=== PATIENT | male | born 1975 | race Caucasian/White ===

== ENCOUNTER → 2019-04-07 | Outpatient (CLI) | payer OTHER ==
--- NOTE | 2019-04-07 07:45 | MR ---
EXAMINATION TYPE: MR knee LT wo con DATE OF EXAM: 04/07/2019 COMPARISON: NONE HISTORY: L knee pain per order. Outer knee pain and locking on and off for 1 year per patient. TECHNIQUE: Multiplanar, multisequence images of the knee is performed without IV contrast. FINDINGS: MEDIAL MENISCUS: Anterior and posterior horns are intact without tear. LATERAL MENISCUS: Anterior and posterior horns are intact without tear. CRUCIATE LIGAMENTS: The anterior and posterior cruciate ligaments are intact and unremarkable. COLLATERAL LIGAMENTS: The medial collateral ligament and lateral collateral ligament complex are inta ct and unremarkable. EXTENSOR MECHANISM: Visualized quadriceps and patellar tendons are intact. EFFUSION: No significant suprapatellar joint effusion. POPLITEAL CYST: There is small popliteal/viera cyst seen best on axial image 12. TRICOMPARTMENT SPACES: There is mild to moderate tricompartment joint space loss and spurring. CARTILAGE: Fissuring of articular cartilage medial tibiofemoral compartment. Some chondromalacia mccauley lla inferiorly. No full-thickness cartilaginous loss. BONE MARROW SIGNAL: No focal abnormal marrow signal is appreciated. OTHER: Some cystic change posterior aspect proximal tibiofibular level could reflect additional synov ial cysts. IMPRESSION: No meniscal or ligamentous tear is seen. [id number] tricompartment degenerative noelle nges somewhat pronounced for patient's age.
== END | disposition home or self-care (01) ==
LOC: RADMRIMAIN 07:04
PROVIDERS: ATTEND Orthopaedic Surgery
DX: M17.12 Unilateral primary osteoarthritis, left knee (principal)

== ENCOUNTER → 2019-08-26 | Outpatient (CLI) | payer OTHER ==
[2019-08-26 09:55] LABS: Basophils % (A) 0 %; Eosinophils # (A) 0.1 k/uL (0-0.7); Eosinophils % (A) 1 %; HCT 44.4 % (39.0-53.0); HGB 15.2 gm/dL (13.0-17.5); Lymphocytes # (A) 1.9 k/uL (1.0-4.8); Lymphocytes % (A) 30 %; MCH 30.5 pg (25.0-35.0); MCHC 34.2 g/dL (31.0-37.0); Mean Platelet Volume 8.3; Monocytes # (A) 0.4 k/uL (0-1.0); Monocytes % (A) 6 %; Neutrophils # (A) 3.9 k/uL (1.3-7.7); Neutrophils % (A) 61 %; Platelet Count 204 k/uL (150-450); RBC 4.99 m/uL (4.30-5.90); WBC 6.4 k/uL (3.8-10.6)
[2019-08-26 10:23] LABS: Potassium 4.4 mmol/L (3.5-5.1)
== END | disposition home or self-care (01) ==
LOC: LABPAT 09:03
PROVIDERS: ATTEND Orthopaedic Surgery
DX: Z01.818 Encounter for other preprocedural examination (principal); M23.92 Unspecified internal derangement of left knee
CPT/HCPCS: 80051; 85025; 36415; U0003

== ENCOUNTER 2019-08-30 10:31 | Day surgery (SDC) | payer OTHER ==
[2019-08-26 10:47] VITALS: BMI 29.5
--- NOTE | 2019-08-29 11:19 | HP ---
HISTORY AND PHYSICAL CHIEF COMPLAINT: Left knee pain. 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 He has had multiple previous injuries. He notes intermittent catching along with swelling and giving way. Recently, he has resorted to using crutches. He has tried previous medications along with injections with only partial temporary relief. PAST MEDICAL HISTORY: Negative. PAST SURGICAL HISTORY: Significant for hernia repair. CURRENT MEDICATIONS: None. He denies drug allergies. FAMILY HISTORY: Significant for cancer. SOCIAL HISTORY: Significant for social alcohol use. 16 POINT REVIEW OF SYSTEMS: Otherwise reviewed and is noncontributory. PHYSICAL EXAMINATION: On examination, the patient is approximately 5 foot 9, 200 pounds of mesomorphic habitus. HEENT': Exam is nonfocal. NECK: Supple. He has painless passive motion of his left hip. Straight leg raise is negative. Active motion left knee -12 to 70 degrees of flexion. He has a moderate effusion. He is tender about the medial joint line. Collaterals are stable, Rain is negative, Markos's is equivocal. His distal neurovascular exam appears intact in the left lower extremity. MRI report left knee showed evidence of medial compartment degenerative changes with possible chondral injury of the medial femoral condyle. IMPRESSION: Left knee internal derangement with possible medial femoral condyle chondral injury. RECOMMENDATIONS: I talked to the patient at length regarding his condition and treatment options. At this point, he remains quite symptomatic, having pain and mechanical symptoms despite conservative measures. After a thorough discussion, he opts to proceed with surgery. Will plan to proceed with arthroscopic evaluation with possible medial femoral chondrectomy and microfracture of the medial femoral condyle. Risks and benefits were discussed at length in layman's terms. We will likely perform it as an outpatient procedure. MMODL / IJN: [id number] /
[~2019-08-30 10:31] MED LIST: LACTATED RINGERS 1,000 ML IV SCH; LIDOCAINE 1% (10MG/ML) FOR IV START INTRADERMA PRN; ONDANSETRON 4 MG/2 ML VIAL IVP ONE
[2019-08-30 10:53] VITALS: TEMP 97.2
[2019-08-30] MEDS ORDERED: DEXAMETHASONE SOD PHOSPHATE 10 MG/ML 1 ML VIAL IV ONE (10:58)
[2019-08-30] MEDS ORDERED: LIDOCAINE 1% INJ 10MG/ML (20 ML MDV) ONE (11:59)
[2019-08-30] MEDS ORDERED: MIDAZOLAM 2 MG/2 ML VIAL ONE (11:59)
[2019-08-30] MEDS ORDERED: fentaNYL (PF) 50 MCG/ML 2 ML AMP ONE (11:59)
[2019-08-30] MEDS ORDERED: PROPOFOL 10 MG/ML 20 ML VIAL IV ONE (11:59)
[2019-08-30] MEDS ORDERED: LACTATED RINGERS 1,000 ML IV ONE (12:52)
--- NOTE | 2019-08-30 13:04 | P.OP ---
Date of Procedure: 08/30/19 Preoperative Diagnosis: Left knee internal derangement Postoperative Diagnosis: Grade 23 chondral injury medial femoral condyle and medial patella facet/grade 4 chondral defect femoral trochlea Procedure(s) Performed: Left knee arthroscopic medial femoral chondrectomy/patellar chondroplasty/microfracture femoral trochlea Anesthesia: ABDIRIZAK Surgeon: Diego Darby Estimated Blood Loss (ml): 10 Pathology: none sent Condition: stable Disposition: PACU Indications for Procedure: The patient's a 44-year-old male who presents with progressive left knee pain and mechanical symptoms after previous twisting injury. A discussion of the risks and benefits of operative intervention versus continued conservative measures was made with the patient. He opted to proceed with surgery. Operative risks to include infection, neurovascular injury, development of blood clots, possible incomplete resolution of symptoms, possible worsening symptoms and need for subsequent procedures was discussed. Informed consent was obtained. Operative Findings: As below Description of Procedure: The patient was brought to the operating room, and after induction of general anesthesia examined the left knee. Collaterals were stable, Rain was negative, and posterior drawer was negative. The left lower extremity was prepped and draped in a normal fashion. A superior lateral portal was made through a 3 mm skin incision superior and lateral to the patella. This was used for outflow. A lateral portal was made through a 5 mm vertical skin incision lateral to the patella tendon above the joint line. Diagnostic arthroscopy was performed. On inspection of the medial compartment, a grade 2/3 chondral injury was noted involving the posterior medial aspect medial femoral condyle. There was a loose chondral flap debrided back to a stable base with a motorized shaver. The medial meniscus appeared to be stable and intact.. On inspection of the notch, the anterior cruciate ligament appeared to be intact. On inspection of the lateral compartment no significant cartilage or meniscal pathology was noted. On inspection of the patellofemoral articulation, a grade 2-3 chondral defect was noted involving the medial patella facet.. There was a loose chondral fragment. I to stable base with a motorized shaver. A grade 4 chondral defect measuring 4 x 8 mm was noted in the femoral trochlea. Microfractures performed with a power pick breaching the subchondral surface down to the bone marrow elements. The gutters were clear debris. The knee was then thoroughly irrigated. The portals were closed with Steri-Strips. A sterile dressing was applied in addition to a compression stocking. The patient was awoken from general anesthesia and transferred to recovery room in good condition. Blood loss was estimated at 10 mL. No complications were incurred.
[2019-08-30 13:09] VITALS: RESP 16
[2019-08-30] MEDS: HYDROmorphone 0.5 MG/0.5 ML SYRINGE IVP PRN ×2 (13:13→13:30)
[2019-08-30] MEDS ORDERED: KETOROLAC 30 MG/ML 1 ML VIAL IVP ONE (13:15)
[2019-08-30 14:28] VITALS: BP 115/77; PULSE 75
== END 2019-08-30 14:38 | disposition home or self-care (01) ==
LOC: OR 10:31
PROVIDERS: ATTEND Orthopaedic Surgery
DX: S89.82XA Other specified injuries of left lower leg, initial encounter (principal); M94.8X6 Other specified disorders of cartilage, lower leg; Z87.828 Personal history of other (healed) physical injury and trauma; Z98.890 Other specified postprocedural states; Z80.9 Family history of malignant neoplasm, unspecified; X50.1XXA Overexertion from prolonged static or awkward postures, initial encounter
CPT/HCPCS: 29881; 29879; J2250; J1100; J0690; J2405; J2001; J3010; J1885; J2704; J1170